=== PATIENT | female | born 1970 | race Caucasian/White ===

== ENCOUNTER 2021-10-04 21:27 | Inpatient (IN) ==
[2021-10-05] MEDS ORDERED: Naloxone 0.4 MG/ML INJ IVP PRN (00:31)
[2021-10-05] MEDS ORDERED: Acetaminophen 325 MG TABLET PO PRN (00:31)
[2021-10-05] MEDS ORDERED: Ondansetron 4 MG/2 ML VIAL IVP PRN (00:31)
[2021-10-05] MEDS ORDERED: 0.9 % Sodium Chloride 1,000 ML IVC SCH (00:45)
[2021-10-05] MEDS ORDERED: D5% in Water 1,000 ML IVC PRN (01:15)
[2021-10-05] MEDS ORDERED: Dextrose 4 GM Chewable Tablets PO PRN ×2 (01:15)
[2021-10-05] MEDS ORDERED: *HR* Dextrose 50 % in Water (Syg) 50 ML SYRINGE IVP PRN (01:15)
[2021-10-05] MEDS: Insulin LISPRO 300 UNITS/3 ML VIAL SUBQ SCH ×4 (01:30→17:13)
[2021-10-05] MEDS: Ketorolac 30 MG/ML VIAL IVP PRN ×2 (01:45→22:55)
[2021-10-05 01:58] LABS: Hematocrit 40.1 % (35.3-44.9); Hemoglobin 13.3 g/dL (11.5-15.4); Mean Corpuscular HGB Conc 33.2 g/dL (31.6-35.5); Mean Corpuscular Hemoglobin 31.4 pg (28.0-33.3); Mean Corpuscular Volume 94.8 fL (83.0-100.0); Mean Platelet Volume 10.2 fL (9.4-12.4); Platelet Count 401 K/mcL (140-400); Red Blood Count 4.23 M/mcL (3.82-4.97); Red Cell Distribution Width 13.2 % (11.5-14.5)
[2021-10-05 02:06] LABS: INR 1.1; Prothrombin Time 11.8 Seconds (9.4-12.1)
[2021-10-05 02:09] LABS: Activated Partial Thrombo Time 29.7 Seconds (26.0-36.0)
[2021-10-05 02:22] LABS: BUN/Creatinine Ratio 17 (6-26); Blood Urea Nitrogen 11 mg/dL (6-20); Calcium 9.1 mg/dL (8.6-10.3); Carbon Dioxide 25 mEq/L (23-29); Chloride 102 mEq/L (98-107); Glucose 170 mg/dL (70-105); Osmolality,Calculated 285 (280-300); Potassium 3.9 mEq/L (3.5-5.1); Sodium 136 mEq/L (136-145); eGFR For African Americans > 60 (> 60); eGFR For Non-African Americans > 60 (> 60)
[2021-10-05 05:22] LABS: Estimated Average Glucose 209 mg/dl; Hemoglobin A1C 8.9 %
[2021-10-05] MEDS: BuPROPion XL (24 HR) 150 MG TABLET PO SCH (08:59)
[2021-10-05] MEDS: *HR* Heparin 5,000 UNIT/ML VIAL SQ SCH (17:12)
[2021-10-05] MEDS: lisinopriL 20 MG TABLET PO SCH (19:42)
[2021-10-05] MEDS: Venlafaxine XR (24 HR) 150 MG CAP.ER.24H PO SCH (19:42)
[2021-10-06] MEDS: *HR* Heparin 5,000 UNIT/ML VIAL SQ SCH ×2 (04:59→18:02)
[2021-10-06] MEDS: Insulin LISPRO 300 UNITS/3 ML VIAL SUBQ SCH ×3 (07:28→18:02)
[2021-10-06] MEDS ORDERED: Bupivacaine/EPI 1:200k 0.25% 50 ML VIAL ONE (08:10)
[2021-10-06] MEDS: BuPROPion XL (24 HR) 150 MG TABLET PO SCH (09:48)
[2021-10-06] MEDS ORDERED: *HR* Midazolam HCl 2 MG/2 ML VIAL ONE (10:31)
[2021-10-06] MEDS ORDERED: *HR* Propofol 200 MG/20 ML VIAL IVP ONE (10:31)
[2021-10-06] MEDS ORDERED: *HR* FentaNYL (PF) 100 MCG/2 ML VIAL ONE (10:31)
[2021-10-06] MEDS ORDERED: Ondansetron 4 MG/2 ML VIAL ONE (10:32)
[2021-10-06] MEDS ORDERED: Lidocaine -MPF 2% 2 ML VIAL ONE (10:32)
[2021-10-06] MEDS ORDERED: Lidocaine -MPF 4% 5 ML AMPUL ONE (10:32)
[2021-10-06] MEDS ORDERED: *HR* Succinylcholine 200 MG/10 ML VIAL IVP ONE (10:32)
[2021-10-06] MEDS ORDERED: *HR* HYDROmorphone PF 0.5 MG/0.5 ML SYRINGE IVP PRN (11:01)
[2021-10-06] MEDS ORDERED: *HR* OxyCODONE Immed Rel 5 MG TABLET PO PRN (11:01)
[2021-10-06] MEDS ORDERED: Ropivacaine/PF 0.5% 30 ML VIAL ONE (11:07)
[2021-10-06] MEDS ORDERED: ROPIVACAINE/PF/NS 0.25% 1 EACH SYRINGE INTRAART ONE (11:07)
[2021-10-06] MEDS: Ringers Solution, Lactated 1,000 ML IVC SCH (11:09)
[2021-10-06] MEDS ORDERED: EPHEDrine 50 MG/ML VIAL ONE (11:55)
[2021-10-06] MEDS ORDERED: Acetaminophen IV 1,000 MG/100 ML BAG IVPB ONE ×2 (12:08→12:12)
[2021-10-06] MEDS: Ketorolac 30 MG/ML VIAL IVP PRN (12:50)
[2021-10-06] MEDS ORDERED: Ketorolac 30 MG/ML VIAL ONE (12:51)
[2021-10-06] MEDS: CeFAZolin 2,000 MG/120 ML BAG IVPB SCH ×2 (18:02→23:47)
[2021-10-06] MEDS: Venlafaxine XR (24 HR) 150 MG CAP.ER.24H PO SCH (20:52)
[2021-10-06] MEDS: lisinopriL 20 MG TABLET PO SCH (20:52)
[2021-10-06] MEDS: Menthol 1 EACH LOZENGE PO PRN (22:53)
[2021-10-07] MEDS ORDERED: Melatonin 3 MG TABLET PO ONE (02:28)
[2021-10-07] MEDS: Menthol 1 EACH LOZENGE PO PRN (02:46)
[2021-10-07] MEDS: Ketorolac 30 MG/ML VIAL IVP PRN (02:49)
[2021-10-07] MEDS: *HR* Heparin 5,000 UNIT/ML VIAL SQ SCH ×2 (06:04→17:05)
[2021-10-07] MEDS: BuPROPion XL (24 HR) 150 MG TABLET PO SCH (08:35)
[2021-10-07] MEDS: Insulin LISPRO 300 UNITS/3 ML VIAL SUBQ SCH ×3 (08:36→17:04)
[2021-10-07] MEDS: Ringers Solution, Lactated 1,000 ML IVC SCH (19:23)
[2021-10-07] MEDS: Venlafaxine XR (24 HR) 150 MG CAP.ER.24H PO SCH (19:58)
[2021-10-07] MEDS: lisinopriL 20 MG TABLET PO SCH (19:58)
[2021-10-08] MEDS: *HR* Heparin 5,000 UNIT/ML VIAL SQ SCH ×2 (05:34→17:22)
[2021-10-08] MEDS: Insulin LISPRO 300 UNITS/3 ML VIAL SUBQ SCH ×3 (07:09→17:22)
[2021-10-08] MEDS: BuPROPion XL (24 HR) 150 MG TABLET PO SCH (08:09)
[2021-10-08 20:38] LABS: Bilirubin,Urine Negative (Negative); Blood,Urine Negative (Negative); Clarity,Urine Clear (Clear); Color,Urine Light-Yellow (Yellow); Glucose,Urine (UA) Normal (Normal); Ketones,Urine Negative (Negative); Leukocyte Esterase,Urine Negative (Negative); Nitrite,Urine Negative (Negative); PH,Urine 5.5 pH Units (5.0-8.0); Protein,Urine Negative (Neg-Trace); Specific Gravity,Urine 1.022 (1.010-1.025); Urobilinogen,Urine Normal (Normal)
[2021-10-08] MEDS: lisinopriL 20 MG TABLET PO SCH (20:49)
[2021-10-08] MEDS: Venlafaxine XR (24 HR) 150 MG CAP.ER.24H PO SCH (20:49)
[2021-10-09] MEDS: *HR* Heparin 5,000 UNIT/ML VIAL SQ SCH ×2 (06:11→17:24)
[2021-10-09] MEDS: Insulin LISPRO 300 UNITS/3 ML VIAL SUBQ SCH ×3 (08:06→17:24)
[2021-10-09] MEDS: BuPROPion XL (24 HR) 150 MG TABLET PO SCH (09:09)
[2021-10-09] MEDS: lisinopriL 20 MG TABLET PO SCH (21:24)
[2021-10-09] MEDS: Venlafaxine XR (24 HR) 150 MG CAP.ER.24H PO SCH (21:25)
[2021-10-10] MEDS: *HR* Heparin 5,000 UNIT/ML VIAL SQ SCH (05:15)
[2021-10-10] MEDS: Insulin LISPRO 300 UNITS/3 ML VIAL SUBQ SCH ×3 (08:04→17:29)
[2021-10-10] MEDS: BuPROPion XL (24 HR) 150 MG TABLET PO SCH (08:08)
[2021-10-10] MEDS ORDERED: *HR* Rivaroxaban 10 MG TABLET PO SCH (17:00)
[2021-10-10] MEDS: polyethylene glycoL 3350 17 GM POWD.PACK PO SCH (17:29)
[2021-10-10] MEDS: lisinopriL 20 MG TABLET PO SCH (20:32)
[2021-10-10] MEDS: Venlafaxine XR (24 HR) 150 MG CAP.ER.24H PO SCH (20:32)
[2021-10-11] MEDS: Insulin LISPRO 300 UNITS/3 ML VIAL SUBQ SCH ×3 (08:02→16:51)
[2021-10-11] MEDS: BuPROPion XL (24 HR) 150 MG TABLET PO SCH (08:03)
[2021-10-11] MEDS: *HR* Pioglitazone 30 MG TABLET PO SCH (08:03)
[2021-10-11] MEDS: polyethylene glycoL 3350 17 GM POWD.PACK PO SCH (08:07)
[2021-10-11 14:44] LABS: Influenza A PCR Negative (Negative); Influenza B PCR Negative (Negative); Resp. Syncytial Virus PCR Negative (Negative)
[2021-10-11 14:45] LABS: SARS-CoV-2 by PCR (In House) Negative (Negative)
[2021-10-11] MEDS: Venlafaxine XR (24 HR) 150 MG CAP.ER.24H PO SCH (19:45)
[2021-10-11] MEDS: lisinopriL 20 MG TABLET PO SCH (19:45)
[2021-10-11 21:50] LABS: Bilirubin,Urine Negative (Negative); Blood,Urine Large (Negative); Clarity,Urine Ex.Turbid (Clear); Color,Urine Light-Orange (Yellow); Glucose,Urine (UA) Normal (Normal); Ketones,Urine Trace mg/dL (Negative); Leukocyte Esterase,Urine Moderate (Negative); Mucus,Urine Few per lpf (None-Few); Nitrite,Urine Negative (Negative); Protein,Urine 100 mg/dL (Neg-Trace); RBC,Urine TNTC per hpf (0-3); Squamous Epithelial Cell,Urine Few per hpf (None-Few); WBC,Urine TNTC per hpf (0-3)
[2021-10-12 05:11] LABS: Basophils % 0.3 %; Eosinophils # 0.3 K/mcL (0.0-0.6); Eosinophils % 3.3 %; Immature Granulocytes % 0.6 % (0-4); Lymphocytes % 11.8 %; Mean Corpuscular HGB Conc 31.7 g/dL (31.6-35.5); Mean Corpuscular Volume 97.6 fL (83.0-100.0); Mean Platelet Volume 10.2 fL (9.4-12.4); Monocytes # 0.8 K/mcL (0.0-1.3); Monocytes % 8.5 %; Neutrophils # 6.7 K/mcL (1.6-8.9); Platelet Count 382 K/mcL (140-400); Red Cell Distribution Width 13.2 % (11.5-14.5); Segmented Neutrophils % 75.5 %; White Blood Count 8.8 K/mcL (4.3-11.1)
[2021-10-12] MEDS: BuPROPion XL (24 HR) 150 MG TABLET PO SCH (08:40)
[2021-10-12] MEDS: *HR* Pioglitazone 30 MG TABLET PO SCH (08:40)
[2021-10-12] MEDS: Insulin LISPRO 300 UNITS/3 ML VIAL SUBQ SCH ×3 (08:48→16:20)
[2021-10-12 12:13] LABS: BUN/Creatinine Ratio 14 (6-26); Blood Urea Nitrogen 12 mg/dL (6-20); Carbon Dioxide 30 mEq/L (23-29); Chloride 102 mEq/L (98-107); Glucose 155 mg/dL (70-105); Osmolality,Calculated 289 (280-300); Sodium 138 mEq/L (136-145); eGFR For African Americans > 60 (> 60); eGFR For Non-African Americans > 60 (> 60)
[2021-10-12] MEDS ORDERED: Isovue-370 500 ML BOTTLE IVP ONE (13:37)
[2021-10-12] MEDS: lisinopriL 20 MG TABLET PO SCH (19:35)
[2021-10-12] MEDS: Venlafaxine XR (24 HR) 150 MG CAP.ER.24H PO SCH (19:35)
[2021-10-13 03:53] LABS: Basophils % 0.6 %; Eosinophils # 0.3 K/mcL (0.0-0.6); Eosinophils % 4.3 %; Hematocrit 41.4 % (35.3-44.9); Immature Granulocytes % 0.6 % (0-4); Lymphocytes # 1.1 K/mcL (0.6-4.6); Lymphocytes % 15.6 %; Mean Corpuscular HGB Conc 31.4 g/dL (31.6-35.5); Mean Corpuscular Hemoglobin 30.8 pg (28.0-33.3); Mean Corpuscular Volume 98.1 fL (83.0-100.0); Mean Platelet Volume 10.4 fL (9.4-12.4); Monocytes # 0.6 K/mcL (0.0-1.3); Monocytes % 8.6 %; Neutrophils # 5.1 K/mcL (1.6-8.9); Platelet Count 394 K/mcL (140-400); Red Blood Count 4.22 M/mcL (3.82-4.97); Red Cell Distribution Width 13.2 % (11.5-14.5); Segmented Neutrophils % 70.3 %; White Blood Count 7.2 K/mcL (4.3-11.1)
[2021-10-13 04:15] LABS: BUN/Creatinine Ratio 14 (6-26); Blood Urea Nitrogen 13 mg/dL (6-20); Carbon Dioxide 28 mEq/L (23-29); Chloride 103 mEq/L (98-107); Glucose 133 mg/dL (70-105); Osmolality,Calculated 290 (280-300); Sodium 139 mEq/L (136-145); eGFR For African Americans > 60 (> 60); eGFR For Non-African Americans > 60 (> 60)
[2021-10-13 06:47] VITALS: BP 111/67; PULSE 75; TEMP 97.5; O2SAT 92
[2021-10-13] MEDS: Insulin LISPRO 300 UNITS/3 ML VIAL SUBQ SCH (07:17)
[2021-10-13] MEDS: BuPROPion XL (24 HR) 150 MG TABLET PO SCH (08:25)
[2021-10-13] MEDS: *HR* Pioglitazone 30 MG TABLET PO SCH (08:25)
[2021-10-13] MEDS ORDERED: Aspirin Enteric Coated 325 MG Tablet PO SCH (09:00)
== END 2021-10-13 12:16 | DRG 313 ==
LOC: 3BNU → SUATTDRO 10-05 00:05 → 4WAOSI 10-06 12:09 → SUATTDRO 10-06 16:11
PROVIDERS: ADMIT Internal Medicine; ATTEND Internal Medicine